=== PATIENT | male | born 1995 | race American Indian/Alaskan Native ===

== ENCOUNTER 2018-12-18 01:41 | Emergency (ER) | payer OTHER, BC ==
[2018-12-18 01:55] VITALS: RESP 18; TEMP 98.5; O2SAT 99
[2018-12-18] MEDS ORDERED: Naproxen 550 mg Tab PO STA (02:19)
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
[2018-12-18] MEDS ORDERED: Naproxen 550 mg Tab PO ONE (03:15)
[2018-12-18 04:02] VITALS: BP 121/75; PULSE 75
--- NOTE | 2018-12-18 15:24 | RAD ---
Date of service: 12/18/2018 PROCEDURE: Radiographs of the Left Shoulder HISTORY: injury, shoulder pain, COMPARISON: No prior. FINDINGS: BONES: Normal. No fracture. JOINTS: Normal. Glenohumeral and acromioclavicular joints preserved. No osteoarthritis. SOFT TISSUES: Normal. OTHER FINDINGS: None. IMPRESSION: Normal radiographs of the left shoulder.
--- NOTE | 2018-12-18 15:27 | RAD ---
Date of service: 12/18/2018 PROCEDURE: Cervical Spine Radiographs. HISTORY: Pain. COMPARISON: None available. FINDINGS: BONES: Alignment maintained. No fracture. Dens Intact. DISC SPACES: Normal. SOFT TISSUES: Normal. No prevertebral soft tissue swelling. OTHER FINDINGS: None. IMPRESSION: Normal cervical spine radiographs
== END 2018-12-18 04:02 | disposition home or self-care (01) ==
LOC: SUPCPDRO 01:41 → C.ER 01:41
DX: S16.1XXA Strain of muscle, fascia and tendon at neck level, initial encounter (principal); S40.012A Contusion of left shoulder, initial encounter; V43.52XA Car driver injured in collision with other type car in traffic accident, initial encounter; W22.10XA Striking against or struck by unspecified automobile airbag, initial encounter; Y92.410 Unspecified street and highway as the place of occurrence of the external cause